=== PATIENT | female | born 1970 | race Two or more races ===

== ENCOUNTER 2022-04-08 10:45 | Inpatient (IN) | payer OTHER ==
[~2022-04-08] VITALS: Ht 154.9 cm; Wt 75.7 kg
[2022-04-08] MEDS ORDERED: COZAAR25 MG PO (13:09)
== END 2022-04-11 14:22 | disposition home or self-care (01) | DRG 743 ==
LOC: OB/GYN 04-10 07:00 → O/R 04-10 10:07 → OB/GYN 04-10 10:45
PROVIDERS: ADMIT Obstetrics & Gynecology; ATTEND Obstetrics & Gynecology
PROC: 0UT74ZZ Resection of Bilateral Fallopian Tubes, Percutaneous Endoscopic Approach (ICD-10-PCS; 2022-04-10)
PROC: 0TJB8ZZ Inspection of Bladder, Via Natural or Artificial Opening Endoscopic (ICD-10-PCS; 2022-04-10)
PROC: 0UT94ZZ Resection of Uterus, Percutaneous Endoscopic Approach (ICD-10-PCS; principal; 2022-04-10 07:00)
DX: D25.1 Intramural leiomyoma of uterus (principal); D25.0 Submucous leiomyoma of uterus; D25.2 Subserosal leiomyoma of uterus; N72 Inflammatory disease of cervix uteri; N73.6 Female pelvic peritoneal adhesions (postinfective); Z20.822 Contact with and (suspected) exposure to COVID-19

== ENCOUNTER 2022-04-09 08:47 | Outpatient (CLI) | payer OTHER ==
[~2022-04-09 08:47] MED LIST: COZAAR25 MG PO
== END 2022-04-09 08:55 | disposition home or self-care (01) ==
LOC: LAB 08:47
PROVIDERS: ATTEND Internal Medicine
DX: N39.0 Urinary tract infection, site not specified (principal); I10 Essential (primary) hypertension